=== PATIENT | female | born 1970 | race Native Hawaiian/Other Pacific Islander ===

== ENCOUNTER 2018-12-28 18:37 | Emergency (ER) | payer OTHER ==
[~2018-12-28] VITALS: Ht 161.3 cm; Wt 71.2 kg
[2018-12-28 20:20] LABS: PLATELET COUNT 371 K/uL (152-353)
[2018-12-28 20:31] LABS: POTASSIUM 4.3 mmol/L (3.6-5.2)
[2018-12-28 21:39] VITALS: BP 144/69; TEMP 98.5
== END 2018-12-28 21:45 | disposition home or self-care (01) ==
LOC: ED 18:37
PROVIDERS: Family Medicine
DX: M16.11 Unilateral primary osteoarthritis, right hip (principal); G89.4 Chronic pain syndrome
CPT/HCPCS: 36415; 80053; 81000; 85027; 96372; 99283; J1885

== ENCOUNTER 2021-10-24 18:24 | Emergency (ER) | payer OTHER ==
[~2021-10-24] VITALS: Ht 161.3 cm; Wt 77.1 kg
[2021-10-24 19:44] VITALS: BP 13128/8; TEMP 98.5
== END 2021-10-24 19:44 | disposition home or self-care (01) ==
LOC: ED 18:24
DX: G43.909 Migraine, unspecified, not intractable, without status migrainosus (principal)
CPT/HCPCS: 99282; J2270; J2405

== ENCOUNTER 2023-02-14 10:35 | Observation (INO) | payer OTHER ==
[~2023-02-14] VITALS: Ht 160 cm; Wt 80.8 kg
[2023-02-14] VITALS (8 sets, daily range): BP systolic 127–154; BP diastolic 74–101; TEMP 97–98.3; Ht 160 cm; Wt 80.8 kg
[2023-02-14 11:23] LABS: PLATELET COUNT 365 K/uL (152-353)
[2023-02-14 11:24] LABS: POTASSIUM 3.8 mmol/L (3.6-5.2); SODIUM 132 mmol/L (136-145)
[2023-02-14] MEDS ORDERED: MAXALT10 MG PO (17:39)
[2023-02-14] MEDS ORDERED: ACETAMINOPHEN COD PO (17:41)
[2023-02-14] MEDS ORDERED: PHENTERMINE H37.5 M1 PO (17:42)
[2023-02-14] MEDS ORDERED: TIZA4TAB5 PO (17:43)
[2023-02-14] MEDS ORDERED: GABA300C2 PO (17:43)
[2023-02-14] MEDS ORDERED: DULO30CA PO (17:44)
[2023-02-14] MEDS ORDERED: DICYCLOMINE HYD20 MG PO (17:45)
[2023-02-14] MEDS ORDERED: HAIR/SKIN/NAILS1 CAP PO (17:46)
[2023-02-14] MEDS ORDERED: ADVIL200 M1 PO (17:47)
[2023-02-14] MEDS ORDERED: TUMERIC PO (17:47)
[2023-02-15 04:00] VITALS: BP 124/75; TEMP 97.7
[2023-02-15 08:00] VITALS: BP 120/74; TEMP 98
[2023-02-15 12:00] VITALS: BP 122/76; TEMP 97.7
[2023-02-15 20:00] VITALS: BP 118/68; TEMP 98
[2023-02-15 23:38] VITALS: BP 118/68; TEMP 98
[2023-02-16 04:52] LABS: PLATELET COUNT 328 K/uL (152-353)
[2023-02-16 06:39] VITALS: BP 128/83; TEMP 98.2
[2023-02-16 12:17] VITALS: BP 142/92; TEMP 98.2
[2023-02-16 16:00] VITALS: BP 147/80; TEMP 98.4
[2023-02-16] MEDS ORDERED: CIPR500T PO (17:59)
[2023-02-16] MEDS ORDERED: METR250T19 PO (18:00)
== END 2023-02-16 18:18 | disposition home or self-care (01) ==
LOC: ED 10:35 → MED/SURG 12:50
PROVIDERS: Family Medicine; Internal Medicine; ADMIT Nurse Practitioner Family; ATTEND Internal Medicine Endocrinology, Diabetes & Metabolism
DX: K29.80 Duodenitis without bleeding (principal); R11.2 Nausea with vomiting, unspecified; R10.12 Left upper quadrant pain; R10.11 Right upper quadrant pain; Z72.0 Tobacco use; K85.90 Acute pancreatitis without necrosis or infection, unspecified; M54.89 Other dorsalgia
CPT/HCPCS: 36415; 80053; 81002; 83690; 84484; 85027; 93005; 96361; 96365; 96366; 96367; 96375; 96376; 99221; 99284; G0378; J0744; J2270; J2405; J3490; Q9963